=== PATIENT | female | born 1990 | race Two or more races ===

== ENCOUNTER 2025-01-05 09:35 | Emergency (ER) | payer MEDICAID, SELFPAY ==
[2025-01-05 09:36] VITALS: BMI 38.2
[2025-01-05 09:44] VITALS: BP 122/81; PULSE 86; RESP 18; TEMP 37.2; O2SAT 96
--- NOTE | 2025-01-05 09:46 | XR_ITS ---
Examination: Foot, left, 3 views Technique: AP, oblique, lateral views foot, 3 views Date and time of exam: January 05, 2025 0944 hrs. Indications: Injured the foot 2 days ago, foot pain Findings: No acute fracture No dislocation No foreign body Impression: No acute fracture
--- NOTE | 2025-01-05 09:46 | XR_ITS ---
EXAMINATION: Ankle, left 3 views . Technique: Ankle AP, oblique, lateral 3 views Date and time of exam: January 05, 2025 0945 hrs. Indications: Injury to the ankle 2 days ago, ankle pain. Findings: No acute fracture Or dislocation No foreign body Impression: No acute fracture
--- NOTE | 2025-01-05 09:47 | PD.EDANKLE ---
Lower Extremity Injury RME/HPI General Chief Complaint: Ankle/Foot Injury Stated Complaint: L FOOT INJURY Time Seen by Provider: 01/05/25 09:48 Source: patient Arrival date/time: 01/05/25 09:35 34-year-old female with no known medical history presents to the emergency room with a chief complaint of left foot tenderness and swelling after a fall that occurred yesterday afternoon. Mode of arrival: ambulatory Limitations: no limitations Related Data Home Medications ?Medication ?Instructions ?Recorded ?Confirmed vitamin-ferrous fumarate 1 tab PO QDAY 01/13/22 02/05/22 28 mg iron-folic acid 800 mcg tablet ( Vitamins with Minerals) Previous Rx's ?Medication ?Instructions ?Recorded ciprofloxacin HCl 500 mg tablet 500 mg PO BID #20 tabs 10/12/22 (Cipro) metronidazole 500 mg tablet 500 mg PO TID #21 tabs 10/12/22 ibuprofen 600 mg tablet 600 mg PO Q8H PRN fever or pain 01/05/25 #20 tabs Allergies Allergy/AdvReac Type Severity Reaction Status Date / Time No Known Allergies Allergy Verified 01/05/25 09:36 Review of Systems Review of Systems Systems Reviewed: All systems reviewed, normal except as documented Constitutional Constitutional: Reports system reviewed and no additional complaints, except as documented, Denies fatigue, Denies fever(s), Denies headache(s) and Denies weakness Eyes Eyes: Reports system reviewed and no additional complaints, except as documented, Denies blurry vision and Denies change in vision ENT Ears, Nose, Mouth, and Throat: Reports system reviewed and no additional complaints, except as documented, Denies otalgia, Denies headache(s), Denies nasal congestion, Denies throat swelling and Denies vertigo Cardiovascular Cardiovascular: Reports system reviewed and no additional complaints, except as documented, Denies chest pain, Denies dyspnea and Denies dyspnea on exertion Respiratory Respiratory: Reports system reviewed and no additional complaints, except as documented, Denies chest congestion, Denies cough, Denies dyspnea, Denies dyspnea on exertion and Denies wheezing Gastrointestinal Gastrointestinal: Reports system reviewed and no additional complaints, except as documented, Denies abdominal pain, Denies cramping, Denies nausea and Denies vomiting Genitourinary Genitourinary: Reports system reviewed and no additional complaints, except as documented Musculoskeletal Musculoskeletal: Reports system reviewed and no additional complaints, except as documented, Reports abnormal gait, Reports arthralgias, Denies back pain and Reports joint swelling Integumentary/Breasts Skin/Breast: Reports system reviewed and no additional complaints, except as documented and Denies wounds Neurologic Neurologic: Reports system reviewed and no additional complaints, except as documented, Reports abnormal gait, Denies confusion, Denies headache(s), Denies lack of coordination, Denies vertigo and Denies weakness Psychiatric Psychiatric: Reports system reviewed and no additional complaints, except as documented, Denies anxiety, Denies confusion, Denies depression, Denies paranoia, Denies suicidal ideation and Denies tactile hallucinations Endocrine Endocrine: Reports system reviewed and no additional complaints, except as documented and Denies fatigue Hematologic/Lymphatic Hematologic/Lymphatic: Reports system reviewed and no additional complaints, except as documented and Denies lymphadenopathy Allergic/Immunologic Allergic/Immunologic: Reports system reviewed and no additional complaints, except as documented, Denies throat swelling, Denies urticaria and Denies wheezing ED Exam General Limitations: Present no limitations General appearance: Present alert and in no apparent distress Head Head exam: Present atraumatic Eye Eye exam: Present normal appearance, PERRL and EOMI ENT ENT exam: Present normal exam, normal oropharynx and mucous membranes moist Neck Neck exam: Present normal inspection, full ROM and trachea midline Chest Chest inspection: Present normal inspection and symmetric chest wall rise Respiratory Respiratory exam: Present normal lung sounds bilaterally Cardiovascular Cardiovascular exam: Present regular rate, normal rhythm and normal heart sounds Abdominal Exam Abdominal exam: Present soft and normal bowel sounds Extremities Exam Extremities exam: Present normal inspection and full ROM Expanded Lower Extremity Exam Hip/Pelvis exam: Present normal inspection Upper leg exam: Present normal inspection Knee exam: Present normal inspection Lower leg exam: Present normal inspection Ankle exam: Present tenderness Foot/toe exam: Present tenderness and swelling; Absent full ROM Gait: observed and limited by pain Back Exam Back exam: Present normal inspection and full ROM Neurological Exam Neurological exam: Present alert, oriented X3 and CN II-XII intact Psychiatric Psychiatric exam: Present normal affect and normal mood Skin Skin exam: Present warm, dry, intact and normal color Course Quality Measures none Orders Category Date Time Status XR ankle comp LT min 3V Stat Exams 01/05/25 09:46 Completed XR foot comp LT min 3V Stat Exams 01/05/25 09:46 Completed Vital Signs Vital signs: Vital Signs Temperature 99.0 F 01/05/25 09:44 Pulse Rate 86 01/05/25 09:44 Respiratory Rate 18 01/05/25 09:44 Blood Pressure 122/81 01/05/25 09:44 Pulse Oximetry (%) 96 01/05/25 09:44 Oxygen Delivery Method Room Air 01/05/25 09:44 O2 saturation 96% within normal limits Extremity Injury, Lower MDM Narrative MDM Narrative:: 34-year-old female with no known medical history presents to the emergency room with a chief complaint of left foot tenderness and swelling after a fall that occurred yesterday afternoon. Patient is hemodynamically stable and in no apparent distress Physical examination shows pain and tenderness to the left foot near the base of the fifth digit. X-ray of the left foot and ankle were completed and were negative for any acute fractures. For any evidence of worsening signs or symptoms return to the emergency room immediately Patient data External records reviewed:: [facility] previous records Clinical information provided by:: patient Social determinants that could affect healthcare access:: none Patient has the following chronic illnesses:: No chronic illness How is presenting disease/condition affected by chronic disease/condition?: no chronic disease Evaluation data The following diagnostics were reviewed and interpreted by me:: lab results and radiology exam(s) Lab and/or radiology exams considered but not ordered:: Labs and radiology exams considered and ordered Interpretation Summary: [id number]: No acute fracture No dislocation No foreign body Impression: No acute fracture Medications / Prescriptions Medications or Prescriptions considered but not ordered:: No medication Medication administrations:: Rx given Consultations Consultation(s) initiated? (list below): No Diagnosis Extremity Injury, Lower Differential Diagnosis: ankle sprain and strain, fracture of toe, ankle fracture and other (Foot sprain) Most likely diagnosis given after review of the tests above:: Foot sprain Admission Indicated Admission indicated?: not indicated Admission Request Was there a request for admission?: No Disposition Plan Disposition Plan: Discharge Discharge Attestation Discharge Attestation: The patient and all family members were given an opportunity to ask questions and understood the discharge instructions. Discharge instructions specifically effects, indications for sooner follow up or return to the emergency department, and the expected course of current diagnosis. Patient condition: Stable Discharge Plan Plan Patient Disposition: HOME (Self Care) Disposition Comment: Stable Prescriptions/Referrals Prescriptions/Med Rec: New ibuprofen 600 mg tablet 600 mg PO Q8H PRN (Reason: fever or pain) Qty: 20 0RF No Action vit-iron fum-folic ac [ Vitamin with Minerals] 28 mg iron- 800 mcg Tablet 1 tab PO QDAY ciprofloxacin HCl [Cipro] 500 mg tablet 500 mg PO BID Qty: 20 0RF metronidazole 500 mg tablet 500 mg PO TID Qty: 21 0RF Referrals: Tomi Fleming MD [Primary Care Provider] - In 1 week Problem List Clinical Impression: Foot sprain Patient/Caregiver Discharge Instructions Education Materials: Treating?Strains and Sprains, ED NOMAN Wrap, ED Foot Sprain Additional Instructions: Please follow-up with your primary care provider in the next 24 to 48 hours. Please keep your Noman wrap on your foot. X-rays of your ankle and your foot were completed and were negative for any acute fractures or dislocations Please return to the emergency room for any evidence of worsening signs or symptoms Print Language: Bolivian Stand Alone Forms: Laine Award Info., Patient Portal Info Letter PA/MELINA Supervising Physician PA/MELINA Supervising Physician: Dr Villaseñor
== END 2025-01-05 10:50 | disposition home or self-care (01) ==
PROVIDERS: Emergency Provider Emergency Medicine; PCP Family Medicine
DX: S93.602A Unspecified sprain of left foot, initial encounter (principal); W19.XXXA Unspecified fall, initial encounter
CPT/HCPCS: 73610; 73630; 99283